=== PATIENT | male | born 1975 | race Caucasian/White ===

== ENCOUNTER 2021-03-04 12:17 | Emergency (ER) | payer OTHER ==
[~2021-03-04] VITALS: Ht 188 cm; Wt 77.1 kg
[~2021-03-04 12:17] MED LIST: AMOXICILLIN 50500 MG PO; IBUPROFEN 600600 M1 PO; TRAMADOL 50 MG50 MG PO
[2021-03-04] MEDS ORDERED: CRUTCHES MISCELL (13:09)
[2021-03-04] MEDS ORDERED: MOBIC7.5 MG PO (13:09)
[2021-03-04 13:36] VITALS: BP 142/96
== END 2021-03-04 13:37 | disposition home or self-care (01) ==
LOC: M.ERS 12:17
DX: M25.561 Pain in right knee (principal); R03.0 Elevated blood-pressure reading, without diagnosis of hypertension; J45.909 Unspecified asthma, uncomplicated; F17.210 Nicotine dependence, cigarettes, uncomplicated; Z86.14 Personal history of Methicillin resistant Staphylococcus aureus infection

== ENCOUNTER 2021-03-24 13:20 | Emergency (ER) | payer OTHER ==
[~2021-03-24] VITALS: Ht 188 cm; Wt 77.1 kg
[~2021-03-24 13:20] MED LIST changes: +CRUTCHES MISCELL; +MOBIC7.5 MG PO
[2021-03-24] MEDS ORDERED: HYDROCODON-ACE1 EAC7 PO (13:50)
[2021-03-24 14:25] VITALS: BP 134/86
== END 2021-03-24 14:26 | disposition home or self-care (01) ==
LOC: M.ERS 13:20
DX: S90.32XA Contusion of left foot, initial encounter (principal); J45.909 Unspecified asthma, uncomplicated; M19.90 Unspecified osteoarthritis, unspecified site; F17.210 Nicotine dependence, cigarettes, uncomplicated; Z79.899 Other long term (current) drug therapy; W11.XXXA Fall on and from ladder, initial encounter; Y93.89 Activity, other specified; Y92.89 Other specified places as the place of occurrence of the external cause; Y99.8 Other external cause status

== ENCOUNTER 2021-05-24 21:18 | Emergency (ER) | payer OTHER ==
[~2021-05-24] VITALS: Ht 188 cm; Wt 77.1 kg
[~2021-05-24 21:18] MED LIST changes: +HYDROCODON-ACE1 EAC7 PO
[2021-05-24] MEDS ORDERED: PREDNISONE 20 M20 MG PO (21:51)
[2021-05-24] MEDS ORDERED: DOXYCYCLINE 10100 MG PO (21:51)
[2021-05-24] MEDS ORDERED: TRIAMCINOLONE A15 GM TOP (21:51)
[2021-05-24 21:57] VITALS: BP 153/109
== END 2021-05-24 21:57 | disposition home or self-care (01) ==
LOC: M.ERS 21:18
DX: R21 Rash and other nonspecific skin eruption (principal); M19.90 Unspecified osteoarthritis, unspecified site; J45.909 Unspecified asthma, uncomplicated